=== PATIENT | female | born 1980 | race Two or more races ===

== ENCOUNTER 2017-07-05 08:40 | Emergency (ER) | payer MEDICAID ==
[~2017-07-05] VITALS: Ht 172.7 cm; Wt 117.9 kg
[2017-07-05 09:54] LABS: Basophils # (auto) 0.1 uL; Basophils % (auto) 0.6 % (0.0-2.0); Eosinophils # (auto) 0.5 uL; Eosinophils % (auto) 3.6 % (0.0-7.0); Hematocrit 47.1 % (36.0-46.0); Hemoglobin 15.3 g/dL (12.2-16.2); Lymphocytes # (auto) 3.3 uL; Lymphocytes % (auto) 23.2 % (10.0-50.0); Mean Corpuscular Hemoglobin 28.3 pg (28.0-32.0); Mean Corpuscular Hgb Conc. 32.5 g/dL (32.0-36.0); Mean Corpuscular Volume 87.1 fL (80.0-100.0); Mean Platelet Volume 8.6 fL (6.9-10.8); Monocytes # (auto) 0.8 uL; Monocytes % (auto) 5.3 % (0.0-12.0); Neutrophils # (auto) 9.7 uL; Neutrophils % (auto) 67.3 % (37.0-80.0); Platelet Count (auto) 321 10^3/uL (140-450); Red Cell Distribution Width 13.2 % (11.8-14.3); White Blood Cell 14.3 10^3/uL (4.4-10.8)
[2017-07-05 10:33] LABS: Albumin 3.4 g/dL (3.4-5.0); Alkaline Phosphatase 97 U/L (45-117); Anion Gap 11 (5-15); Aspartate Aminotransferase 24 U/L (15-37); B-Type Natriuretic Peptide 9.69 pg/mL (0-100); BUN/Creatinine Ratio 10.7; Bilirubin, Total 0.5 mg/dL (0.2-1.0); Blood Urea Nitrogen 9 mg/dL (7-18); Calcium 8.5 mg/dL (8.5-10.1); Carbon Dioxide 23 mmol/L (21-32); Chloride 102 mmol/L (98-107); GFR African American 99 mL/min; GFR Non-African American 82 mL/min; Glucose 261 mg/dL (74-106); Potassium 3.8 mmol/L (3.5-5.1); Sodium 136 mmol/L (136-145); Total Protein 7.7 g/dL (6.4-8.2)
[2017-07-05 10:38] LABS: Temperature: 23.7 C (20.0-25.0)
[2017-07-05 11:00] VITALS: BP 153/74
[2017-07-05] MEDS ORDERED: IOHEXOL 350 MG/ML 100ML IJ ONE (12:18)
== END 2017-07-05 13:40 | disposition home or self-care (01) ==
LOC: ER 08:40
DX: J18.9 Pneumonia, unspecified organism (principal); J45.909 Unspecified asthma, uncomplicated
CPT/HCPCS: 36415; 71275; 80053; 81025; 83735; 83880; 84484; 85025; 85379; 93005; 94761; 99285; Q9967

== ENCOUNTER 2022-01-06 09:42 | Emergency (ER) | payer MEDICAID, OTHER ==
[~2022-01-06] VITALS: Ht 172.7 cm; Wt 113.4 kg
[2022-01-06 10:57] VITALS: BP 194/86
[2022-01-06] MEDS ORDERED: IBUP800T27 PO (11:20)
[2022-01-06] MEDS ORDERED: CLIN300C8 PO (11:20)
[2022-01-06] MEDS ORDERED: KETOROLAC TROMETH 60MG/2ML VIAL IM ONE (11:30)
[2022-01-06] MEDS ORDERED: cefTRIAXone SOD 1,000 MG VL IM ONE (11:30)
== END 2022-01-06 11:50 | disposition home or self-care (01) ==
LOC: ER 09:42
DX: K04.7 Periapical abscess without sinus (principal); E11.9 Type 2 diabetes mellitus without complications; I10 Essential (primary) hypertension; Z91.013 Allergy to seafood
CPT/HCPCS: 81025; 96372; 99284; J0696; J1885